=== PATIENT | female | born 1965 | race African-American/Black ===

== ENCOUNTER 2020-09-03 19:37 | Emergency (ER) | payer MEDICAID ==
[~2020-09-03] VITALS: Ht 175.3 cm; Wt 56.7 kg
[2020-09-03 19:40] VITALS: BP 114/57
--- NOTE | 2020-09-03 20:17 | NUR ---
URINE SAMPLE COLLECTED AND SENT TO LAB.
[2020-09-03 20:40] LABS: BILIRUBIN,URINE NEGATIVE (NEGATIVE); COLOR,URINE YELLOW (YELLOW); LEUKOCYTE ESTERASE ,URINE TRACE (NEGATIVE); NITRITE, URINE NEGATIVE (NEGATIVE); PH,URINE 6.5 (5.0-8.0); PROTEIN,URINE NEGATIVE (NEGATIVE); UGLUCOSE NEGATIVE (NEGATIVE); UROBILINOGEN,URINE 0.2 EU/dL (0.2)
[2020-09-03 20:45] LABS: BACTERIA,URINE 1+ /HPF (None Seen); RBC,URINE 0-2 /HPF (0-2)
[2020-09-03 20:46] LABS: URINE AMORPHOUS URATE Few /HPF (None Seen)
[2020-09-03] MEDS ORDERED: PHEN-705 PO (20:51)
[2020-09-03] MEDS ORDERED: SULF1TAB48 PO (20:51)
[2020-09-03] MEDS ORDERED: SULFAMETH/TRIMETH 800/160 MG 1 UDTAB TABLET ONE (20:58)
[2020-09-03] MEDS ORDERED: PHENAZOPYRIDINE HCL 200 MG TABLET ONE (20:58)
[2020-09-03] MEDS: SULFAMETH/TRIMETH 800/160 MG 1 UDTAB TABLET PO ONE (21:04)
[2020-09-03] MEDS: PHENAZOPYRIDINE HCL 200 MG TABLET PO ONE (21:04)
== END 2020-09-03 21:10 | disposition home or self-care (01) ==
LOC: ER 19:43 → EDBD 19:43 → ER 21:10
DX: N39.0 Urinary tract infection, site not specified (principal)
CPT/HCPCS: 81001; 84703-TC

== ENCOUNTER 2020-09-10 20:31 | Emergency (ER) | payer SELFPAY ==
[~2020-09-10] VITALS: Ht 175.3 cm; Wt 56.7 kg
[~2020-09-10 20:31] MED LIST: PHEN-705 PO; SULF1TAB48 PO
--- NOTE | 2020-09-10 20:50 | NUR ---
PT AAOX4. AMBULATORY WITH STEADY GAIT. BIBSELF C/O LOWER ABD PAIN X3DAYS. PER PT, SHE IS ON BACTRIM FOR UTI ON 3RD DAY OF TX. PLACED IN BED 16 ON MONITOR AND PULSE OX.
[2020-09-10 21:09] LABS: BILIRUBIN,URINE NEGATIVE (NEGATIVE); COLOR,URINE YELLOW (YELLOW); LEUKOCYTE ESTERASE ,URINE SMALL (NEGATIVE); NITRITE, URINE NEGATIVE (NEGATIVE); PROTEIN,URINE NEGATIVE (NEGATIVE); UGLUCOSE NEGATIVE (NEGATIVE); UROBILINOGEN,URINE 0.2 EU/dL (0.2)
[2020-09-10 21:15] LABS: BACTERIA,URINE 2+ /HPF (None Seen); RBC,URINE 0-2 /HPF (0-2)
--- NOTE | 2020-09-10 21:40 | NUR ---
Patient discharged to home in stable condition. Written and verbal after care instructions given. Patient verbalizes understanding of instruction. Pt told to follow up with PMD. Stated "I will come back here."
[2020-09-10 21:41] VITALS: BP 119/72
== END 2020-09-10 21:41 | disposition home or self-care (01) ==
LOC: ER 20:31
DX: N39.0 Urinary tract infection, site not specified (principal)
CPT/HCPCS: 81001; 87086-TC

== ENCOUNTER 2020-09-25 20:06 | Emergency (ER) | payer SELFPAY ==
[~2020-09-25] VITALS: Ht 175.3 cm; Wt 56.7 kg
--- NOTE | 2020-09-25 20:07 | NUR ---
JEFE C/P WOULD LIKE TO RECIEVE ANTIBIOTICS FOR UTI. PLACED IN 16 ON MONITOR AND PULSE OX.
[2020-09-25 20:08] VITALS: BP 125/76
--- NOTE | 2020-09-25 20:36 | NUR ---
URINE COLLECTED, SENT TO LAB.
[2020-09-25 21:06] LABS: BILIRUBIN,URINE NEGATIVE (NEGATIVE); COLOR,URINE YELLOW (YELLOW); LEUKOCYTE ESTERASE ,URINE TRACE (NEGATIVE); NITRITE, URINE NEGATIVE (NEGATIVE); PROTEIN,URINE NEGATIVE (NEGATIVE); UGLUCOSE NEGATIVE (NEGATIVE); UROBILINOGEN,URINE 0.2 EU/dL (0.2)
[2020-09-25 21:13] LABS: BACTERIA,URINE None seen /HPF (None Seen); RBC,URINE 0-2 /HPF (0-2); SQUAMOUS EPITHELIAL CELL,UR 0-2 /HPF (None Seen)
== END 2020-09-25 21:41 | disposition home or self-care (01) ==
LOC: ER 20:08
DX: R35.0 Frequency of micturition (principal); F60.89 Other specific personality disorders
CPT/HCPCS: 81001; 84703-TC; 87086-TC

== ENCOUNTER 2020-10-04 11:33 | Emergency (ER) | payer SELFPAY ==
[~2020-10-04] VITALS: Ht 167.6 cm; Wt 63.5 kg
[2020-10-04 11:47] VITALS: BP 93/64
[2020-10-04 12:52] LABS: BILIRUBIN,URINE Negative (NEGATIVE); COLOR,URINE YELLOW (YELLOW); LEUKOCYTE ESTERASE ,URINE Negative (NEGATIVE); NITRITE, URINE Negative (NEGATIVE); PROTEIN,URINE 30 mg/dl (NEGATIVE); UGLUCOSE Negative (NEGATIVE); UROBILINOGEN,URINE 0.2 EU/dL (0.2)
[2020-10-04 13:36] LABS: RBC,URINE 0-3 /HPF (0-2); WBC,URINE 0-2 /HPF (0-3)
[2020-10-04 13:37] LABS: BACTERIA,URINE Rare /HPF (None Seen); SQUAMOUS EPITHELIAL CELL,UR Rare /HPF (None Seen)
[2020-10-04] MEDS ORDERED: DOXY100C2 PO (13:49)
[2020-10-04] MEDS ORDERED: AMOX500C2 PO (13:49)
[2020-10-04] MEDS ORDERED: PHEN-704 PO (13:49)
[2020-10-04] MEDS ORDERED: CEFTRIAXONE 1 G VIAL ONE (14:00)
[2020-10-04] MEDS ORDERED: CEFTRIAXONE 500 MG VIAL IM ONE (14:00)
[2020-10-04] MEDS ORDERED: LIDOCAINE /MPF 1% VIAL 5 ML VIAL ONE (14:00)
--- NOTE | 2020-10-04 14:11 | NUR ---
Patient discharged to home in stable condition. Written and verbal after care instructions given. Patient verbalizes understanding of instruction. Pt ambulatory with a steady gait
== END 2020-10-04 14:16 | disposition home or self-care (01) ==
LOC: ER 11:37
DX: J02.9 Acute pharyngitis, unspecified (principal); R35.0 Frequency of micturition; Z11.3 Encounter for screening for infections with a predominantly sexual mode of transmission; Z85.3 Personal history of malignant neoplasm of breast; Z79.899 Other long term (current) drug therapy
CPT/HCPCS: 81001; 87070; 87491; 87591; 87880; 96372; 99283; J0696; J3490; 86403-TC

== ENCOUNTER 2022-02-17 14:53 | Emergency (ER) | payer SELFPAY ==
[~2022-02-17] VITALS: Ht 175.3 cm; Wt 64.4 kg
[~2022-02-17 14:53] MED LIST changes: +AMOX500C2 PO; +DOXY100C2 PO; +PHEN-704 PO
[2022-02-17 14:57] VITALS: BP 118/59
[2022-02-17] MEDS ORDERED: GUAI-671 PO (15:11)
== END 2022-02-17 15:24 | disposition home or self-care (01) ==
LOC: ER 14:54
DX: J20.9 Acute bronchitis, unspecified (principal); Z79.899 Other long term (current) drug therapy

== ENCOUNTER 2022-12-05 20:05 | Emergency (ER) | payer OTHER ==
[~2022-12-05] VITALS: Ht 170.2 cm; Wt 61.2 kg
[~2022-12-05 20:05] MED LIST changes: +GUAI-671 PO
[2022-12-05 22:52] LABS: PREGNANCY TEST URINE QUAL NEGATIVE (NEGATIVE)
[2022-12-05 22:54] LABS: BASOPHILS % (AUTO) 0.2 % (0.0-2.0); EOSINOPHILS % (AUTO) 0.4 % (0.0-6.0); HEMATOCRIT 41 % (33-45); HEMOGLOBIN 12.8 g/dL (11.5-14.8); LYMPHOCYTES # (AUTO) 0.7 K/uL (0.8-4.8); LYMPHOCYTES % (AUTO) 19.8 % (20.0-44.0); MEAN CORPUSCULAR HEMOGLOBIN 29 PG (26.0-33.0); MEAN CORPUSCULAR HGB CONC 32 g/dl (31.0-36.0); MEAN CORPUSCULAR VOLUME 92 fL (82-100); MONOCYTES # (AUTO) 0.3 K/uL (0.1-1.30); MONOCYTES % (AUTO) 9.2 % (2.0-12.0); NEUTROPHILS # (AUTO) 2.5 K/uL (1.8-8.9); NEUTROPHILS % (AUTO) 70.4 % (43.0-81.0); PLATELET COUNT (AUTO) 155 K/uL (150-450); RED BLOOD CELL COUNT(AUTO) 4.43 MIL/uL (4.0-5.2); RED CELL DISTRIBUTION WIDTH 15.1 % (11.5-15.0); WHITE BLOOD COUNT (AUTO) 3.6 K/uL (4.3-11.0)
[2022-12-05 23:40] LABS: CALCIUM, SERUM 9.9 mg/dL (8.5-10.1); CREATININE 0.7 mg/dL (0.6-1.3); POTASSIUM 3.8 mmol/L (3.5-5.1)
[2022-12-06 00:14] LABS: APPEARANCE,URINE CLEAR (CLEAR); BILIRUBIN,URINE 2+ (NEGATIVE); BLOOD, URINE TRACE-INTA Ery/uL (NEGATIVE); COLOR,URINE DARK YELLOW (YELLOW); KETONES,URINE 2+ mg/dL (NEGATIVE); LEUKOCYTE ESTERASE ,URINE NEGATIVE (NEGATIVE); NITRITE, URINE NEGATIVE (NEGATIVE); PROTEIN,URINE 1+ mg/dl (NEGATIVE); UGLUCOSE NEGATIVE (NEGATIVE)
[2022-12-06 00:19] LABS: BILIRUBIN,DIRECT 0.6 mg/dL (0.0-0.2); BILIRUBIN,TOTAL 1.2 mg/dL (0.2-1.0); TOTAL PROTEIN, SERUM 7.4 g/dL (6.4-8.2)
[2022-12-06 00:31] LABS: ADD URINE CULTURE NO; BACTERIA,URINE Rare /HPF (None Seen); SQUAMOUS EPITHELIAL CELL,UR Few /HPF (None Seen); WBC,URINE 0-2 /HPF (0-3)
[2022-12-06 01:58] VITALS: BP 110/67; TEMP 98.3
[2022-12-08] MEDS ORDERED: ONDA4TAB11 PO (22:59)
[2022-12-08] MEDS ORDERED: OXYC5CAP18 PO (22:59)
== END 2022-12-06 01:59 | disposition home or self-care (01) ==
LOC: ER 20:13
DX: C78.7 Secondary malignant neoplasm of liver and intrahepatic bile duct (principal); R10.9 Unspecified abdominal pain; Z85.3 Personal history of malignant neoplasm of breast; Z91.013 Allergy to seafood
CPT/HCPCS: 36415; 76705-TC; 80048-TC; 80076-TC; 81001; 83690-TC; 84703-TC; 85025-TC

== ENCOUNTER → 2022-12-08 | Emergency (ER) | payer OTHER ==
[~2022-12-08] VITALS: Ht 175.3 cm; Wt 59.0 kg
[~2022-12-08] MED LIST changes: +ONDA4TAB11 PO; +ONDANSETRON 4 MG TAB.RAPDIS ONE; +ONDANSETRON 4 MG TAB.RAPDIS SL ONE; +OXYC5CAP18 PO; +oxyCODONE IR immediate release 5 MG ONE; +oxyCODONE IR immediate release 5 MG PO PRN
[2022-12-08 20:07] LABS: APPEARANCE,URINE SLIGHTLY CLOUDY (CLEAR); BILIRUBIN,URINE 2+ (NEGATIVE); BLOOD, URINE TRACE-INTA Ery/uL (NEGATIVE); COLOR,URINE YELLOW (YELLOW); KETONES,URINE 3+ mg/dL (NEGATIVE); LEUKOCYTE ESTERASE ,URINE NEGATIVE (NEGATIVE); NITRITE, URINE NEGATIVE (NEGATIVE); PROTEIN,URINE 3+ mg/dl (NEGATIVE); UGLUCOSE NEGATIVE (NEGATIVE)
[2022-12-08 20:08] LABS: RBC,URINE 0-2 /HPF (0-2); WBC,URINE 0-2 /HPF (0-3)
[2022-12-08 20:09] LABS: ADD URINE CULTURE NO; BACTERIA,URINE None seen /HPF (None Seen); MUCUS,URINE Few /LPF (None Seen); SQUAMOUS EPITHELIAL CELL,UR 0-2 /HPF (None Seen)
[2022-12-08 23:26] VITALS: BP 100/66; TEMP 98.5; O2SAT 100
== END | disposition home or self-care (01) ==
LOC: ER 17:51
DX: M54.50 Low back pain, unspecified (principal); Z85.3 Personal history of malignant neoplasm of breast; Z91.013 Allergy to seafood; Z60.2 Problems related to living alone
CPT/HCPCS: 99283; 81001; Q0162